=== PATIENT | male | born 1940 | race Caucasian/White ===

== ENCOUNTER → 2021-03-11 | Outpatient (CLI) | payer MEDICARE, OTHER | END | disposition home or self-care (01) | LOC: OIH 15:32 | PROVIDERS: ATTEND Internal Medicine | DX: J47.9 Bronchiectasis, uncomplicated (principal); J84.10 Pulmonary fibrosis, unspecified | CPT/HCPCS: 71046 ==

== ENCOUNTER → 2022-07-11 | Outpatient (CLI) | payer OTHER | END | disposition home or self-care (01) | LOC: RAH 13:46 | PROVIDERS: ATTEND Urology | DX: N20.0 Calculus of kidney (principal); R10.31 Right lower quadrant pain; J98.11 Atelectasis; K44.9 Diaphragmatic hernia without obstruction or gangrene; R16.0 Hepatomegaly, not elsewhere classified; K80.20 Calculus of gallbladder without cholecystitis without obstruction; N26.1 Atrophy of kidney (terminal); N40.0 Benign prostatic hyperplasia without lower urinary tract symptoms | CPT/HCPCS: 74176 ==

== ENCOUNTER → 2023-03-29 | Outpatient (CLI) | payer OTHER | END | disposition home or self-care (01) | LOC: RAH 15:59 | PROVIDERS: ATTEND Internal Medicine | DX: J44.9 Chronic obstructive pulmonary disease, unspecified (principal); R09.02 Hypoxemia | CPT/HCPCS: 71046 ==

== ENCOUNTER → 2024-08-21 | Outpatient (CLI) | payer OTHER ==
--- NOTE | 2024-08-21 09:58 | HMCIMG ---
US ABDOMINAL COMPLETE HISTORY: Abdominal pain COMPARISON: CT from 07/11/2022 TECHNIQUE: Multiple transverse and longitudinal ultrasound images of the abdomen were obtained. FINDINGS: There is atherosclerosis. Abdominal aorta and inferior vena cava are unremarkable. The visualized portion of the pancreas is within normal limits. Liver is echogenic consistent with liver parenchymal disease. Gallstones are seen in the gallbladder. Liver measures 18 cm. Common duct measures 3 mm. Gallbladder wall is borderline thick measuring 3 mm. Kidneys are echogenic consistent with medical renal disease. Right kidney measures 10 x 5.1 x 3 cm. Left kidney measures 6.8 x 4 x 3 cm. No hydronephrosis is seen of the both kidneys. The spleen is grossly unremarkable. IMPRESSION: 1. Gallstones are seen within the gallbladder. No ductal dilatation is seen. 2. No hydronephrosis is seen.
== END | disposition home or self-care (01) ==
LOC: RAH 08:20
PROVIDERS: ATTEND Internal Medicine
DX: K80.20 Calculus of gallbladder without cholecystitis without obstruction (principal); I70.90 Unspecified atherosclerosis; R10.9 Unspecified abdominal pain
CPT/HCPCS: 76700

== ENCOUNTER → 2025-02-26 | Outpatient (CLI) | payer OTHER ==
--- NOTE | 2025-02-26 14:53 | HMCIMG ---
ABD 1VW REASON: CALCULUS OF KIDNEY FINDINGS: Single image of the abdomen was obtained. Bowel gas pattern is nonspecific.. Bones and soft tissues appear unremarkable. There are no abnormal calcifications. There is no evidence of foreign body. There is osteopenia of the osseous structure. 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 There are multiple phleboliths in the pelvic region. IMPRESSION: 1. Nonspecific gas pattern. 2. No calculi identified overlying the kidneys..
--- NOTE | 2025-02-26 15:24 | HMCIMG ---
EXAM: CR ABDOMEN, AP VIEWS CLINICAL HISTORY: Hx of renal calculus COMPARISON: None provided TECHNIQUE: Multiple frontal radiographs of the abdomen. Limited study due to motion artifact. FINDINGS: Bowel gas pattern: Non-obstructive. Few gas shadows, obscuring the renal shadow. No stomach distension. Free air: Not seen. Organomegaly: Not seen. Calcifications: 11 mm calculus projected over the mid left renal shadow; differential includes renal calculus versus fecolith. Ultrasound correlation is suggested for possible left renal/vesical/ureteric calculi. The right renal shadow is clear with no radio opacity. Bones and soft tissues: Few osteophytes in lumbar spine. IMPRESSION: * Limited study due to motion artifact. * 11 mm calculus projected over the mid left renal shadow; differential includes renal calculus versus fecolith. * Another available radiograph of patient from same date shows multiple gas shadows obscuring renal shadows. Multiple pelvic calcifications with lucent centers seen in pelvis may represent phleboliths. However possibility of vesical / distal ureteric calculi cannot be entirely excluded. * USG corelation suggested. /[place]
== END | disposition home or self-care (01) ==
LOC: RAH 11:02
PROVIDERS: ATTEND Urology
DX: N20.0 Calculus of kidney (principal); M25.78 Osteophyte, vertebrae; M85.88 Other specified disorders of bone density and structure, other site; M47.816 Spondylosis without myelopathy or radiculopathy, lumbar region; I87.8 Other specified disorders of veins; Z87.442 Personal history of urinary calculi
CPT/HCPCS: 74018; 76100